=== PATIENT | male | born 1975 | race African-American/Black ===

== ENCOUNTER 2020-12-19 12:54 | Emergency (ER) | payer OTHER ==
[~2020-12-19] VITALS: Ht 175.3 cm; Wt 100.3 kg
--- NOTE | 2020-12-19 13:17 | PHYS DOC ---
Adult General Chief Complaint Chief Complaint: SHORTNESS OF BREATH [facility] HPI Patient is a 45-year-old male presents to the emergency department stating he woke up at approximately 830 this morning and noticed he had left-sided chest tightness with some sensation of pain when he took a deep breath or exhale deeply. Patient states he had a cold last week with nonproductive cough. Patient states that he has 1 roommate that he lives with that also had the same symptoms as a. Patient denies any radiation of this left-sided chest discomfort. Patient denies any nausea, vomiting, diarrhea, constipation. Patient denies any headaches, fever or chills, sore throat, fatigue, muscle or body aches, loss of taste or loss of smell. Patient denies any nasal congestion or runny nose. Patient does state he feels congested in his chest but cannot cough anything up. Patient states that he is unable to rate his pain as he does not describe it as a chest pain and more of a tightness when he takes deep breath. Patient reports being a pack-a-day cigarette smoker, drinks occa sionally socially, does not use any illicit drugs. Patient states he takes an allergy/sinus medication called Singulair daily. Patient denies any other physical complaints or physical symptoms. Review of Systems Review of Systems Constitutional: Denies fever or chills [] Eyes: Denies change in visual acuity, redness, or eye pain [] HENT: Denies nasal congestion or sore throat [] Respiratory: Denies cough or shortness of breath [] Cardiovascular: No additional information not addressed in HPI [] GI: Denies abdominal pain, nausea, vomiting, bloody stools or diarrhea [] : Denies dysuria or hematuria [] Musculoskeletal: Denies back pain or joint pain [] Integument: Denies rash or skin lesions [] Neurologic: Denies headache, focal weakness or sensory changes [] Endocrine: Denies polyuria or polydipsia [] All other systems were reviewed and found to be within normal limits, except as documented in this note. Family History Family History Patient reports his father is alive and has hypercholesterol problems, patient reports his mother from COPD and rheumatoid arthritis complications. Current Medications Current Medications Patient reports taking Singulair 10 mg p.o. daily for allergy and sinus problems. Allergies Allergies Allergies Coded Allergies Type Severity Reaction Last Updated Verified No Known Drug Allergies 12/19/20 No Physical Exam Physical Exam Constitutional: Well developed, well nourished, no acute distress, non-toxic appearance. 45-year-old male in no apparent distress. HENT: Normocephalic, atraumatic, bilateral external ears normal, oropharynx moist, no oral exudates, nose normal. Oropharynx within normal limits, bilateral TMs within normal limits, bilateral nasal turbinates within normal limits. Eyes: PERRLA, EOMI, conjunctiva normal, no discharge. Neck: Normal range of motion, no tenderness, supple, no stridor. No nuchal rigidity, no meningismus signs. Cardiovascular:Heart rate regular rhythm, no murmur, heart sounds S1-S2 to auscultation. Lungs & Thorax: Bilateral breath sounds clear to auscultation all lung bhakta. However when patient coughs, bronchial vesicular lung sounds appreciated per auscultation. Abdomen: Bowel sounds normal, soft, no tenderness, no masses, no pulsatile masses. Skin: Warm, dry, no erythema, no rash. Back: No tenderness, no CVA tenderness. Extremities: No tenderness, no cyanosis, no clubbing, ROM intact, no edema. Neurologic: Alert and oriented X 3, normal motor function, normal sensory function, no focal deficits noted. Psychologic: Affect normal, judgement normal, mood normal. Current Patient Data Lab Results Laboratory Tests Test 12/19/20 13:30 White Blood Count 9.4 x10^3/uL Red Blood Count 4.91 x10^6/uL Hemoglobin 16.1 g/dL Hematocrit 48.2 % Mean Corpuscular Volume 98 fL Mean Corpuscular Hemoglobin 33 pg Mean Corpuscular Hemoglobin Concent 33 g/dL Red Cell Distribution Width 12.7 % Platelet Count 285 x10^3/uL Neutrophils (%) (Auto) 65 % Lymphocytes (%) (Auto) 27 % Monocytes (%) (Auto) 6 % Eosinophils (%) (Auto) 2 % Basophils (%) (Auto) 1 % Neutrophils # (Auto) 6.1 x10^3uL Lymphocytes # (Auto) 2.5 x10^3/uL Monocytes # (Auto) 0.6 x10^3/uL Eosinophils # (Auto) 0.2 x10^3/uL Basophils # (Auto) 0.1 x10^3/uL D-Dimer (Ellie) < 0.19 mg/L Sodium Level 139 mmol/L Potassium Level 3.8 mmol/L Chloride Level 105 mmol/L Carbon Dioxide Level 25 mmol/L Anion Gap 9 Blood Urea Nitrogen 11 mg/dL Creatinine 1.1 mg/dL Estimated GFR (Cockcroft-Gault) 88.4 BUN/Creatinine Ratio 10 Glucose Level 104 mg/dL Calcium Level 9.3 mg/dL Magnesium Level 1.9 mg/dL Total Bilirubin 0.5 mg/dL Aspartate Amino Transf (AST/SGOT) 21 U/L Alanine Aminotransferase (ALT/SGPT) 37 U/L Alkaline Phosphatase 98 U/L Troponin I Quantitative < 0.017 ng/mL Total Protein 8.3 g/dL Albumin 4.0 g/dL Albumin/Globulin Ratio 0.9 Current Medications Medications (Trade) Dose Ordered Sig/Cale Route PRN Reason Start Time Stop Time Status Last Admin Dose Admin Ketorolac Tromethamine (Toradol 30mg Vial) 30 mg 1X ONCE IVP 12/19/20 13:30 12/19/20 13:31 DC 12/19/20 13:50 Acetaminophen (Tylenol) 650 mg 1X ONCE PO 12/19/20 13:30 12/19/20 13:31 DC 12/19/20 13:49 EKG EKG EKG performed at 1352 by house respiratory staff shows a normal sinus rhythm without ectopy with a heart rate of 69 bpm, [place] interval 0.138, QTc interval 0.406, no acute STEMI, no ACS, no acute ischemia appreciated, EKG interpreted by ED attending physician Dr. Hernandez. Radiology/Procedures Radiology/Procedures PATIENT: FRANK NJ ACCOUNT: [id number] : 1975 LOCATION: ER AGE: 45 SEX: M EXAM STATUS: REG ER ORD. PHYSICIAN: CARA BOYKIN APRN REASON: SHORT OF BREATH WITH LEFT SIDE CHEST PAIN PROCEDURE: CHEST PA & LATERAL EXAM: XR CHEST 2V INDICATION: Reason: SHORT OF BREATH WITH LEFT SIDE CHEST PAIN / Spl. Instructions: / History: . TECHNIQUE: PA and lateral views COMPARISON: None FINDINGS: The heart size is normal. The great vessels appear unremarkable. There is no hilar or mediastinal mass. Lungs are hyperlucent of the apices and show prominence of the interlobular septae right greater than left bilaterally. No focal infiltrates. There is no evidence of a pleural effusion or pneumothorax. There are no significant osseous abnormalities. IMPRESSION: Findings suggest underlying emphysema with no pneumothorax or other acute cardiopulmonary process. Consider chest CT (preferably) with IV contrast in further evaluation as clinically warranted. Electronically signed by: Lenka Cook MD (12/19/2020 1:27 PM) [id number] DICTATED AND SIGNED BY: LENKA COOK MD DATE: 12/19/20 [id number] CC: CARA BOYKIN APRN; BRADY ELENA MD ~MTH0 0 Heart Score HEART Score for Chest Pain: HEART Score for Chest Pain Response (Comments) Value History Slighlty/Non-Suspicious 0 ECG Normal 0 Age < 45 0 Risk Factors 1 or 2 Risk Factors 1 Troponin < Normal Limit 0 Total 1 Risk Factors: Risk Factors: DM, Current or recent (<one month) smoker, HTN, HLP, family history of CAD, obesity. Risk Scores: Risk Factors: DM, Current or recent (<one month) smoker, HTN, HLP, family history of CAD, obesity. Course & Med Decision Making Course & Med Decision Making Pertinent Labs and Imaging studies reviewed. (See chart for details) 45-year-old male, vital signs reviewed, presents emergency department complaint of chest tightness with deep inspiration/expiration that started today. Physical examination was consistent with musculoskeletal chest wall pain. However related to patient's history of smoking and family history, a cardiac work-up was initiated. We will treat patient's musculoskeletal chest wall pain symptoms with p.o. Tylenol and IV ketorolac. Any results of cardiorespiratory work-up at this time. Patient's labs equivocal, D-dimer was negative. Discussed chest x-ray findings with patient. Discussed smoking cessation with patient. Discussed follow-up care soon with primary care doctor related to chest x-ray findings. Patient gave verbal understanding of discharge home instructions, follow-up with primary care instructions, return to emergency department precautions or concerns, home medication use, the patient is a PUI and will be given a work excuse for 2 days pending test results and will extend for additional 10 days if results positive. Patient is PUI, I were N95 mask, goggles, face shield, PPE gown and gloves during contact with patient. The patient was not in a negative pressure room. Dragon Disclaimer Dragon Disclaimer This electronic medical record was generated, in whole or in part, using a voice recognition dictation system. Departure Departure: Impression: Primary Impression: Chest wall pain Additional Impressions: Person under investigation for COVID-19 Educated about COVID-19 virus infection Counseled about COVID-19 virus infection Encounter for smoking cessation counseling Disposition: 01 DC HOME SELF CARE/HOMELESS Condition: GOOD Referrals: PCP,NO (PCP) Patient Instructions: Chest Wall Pain, Smoking Cessation Additional Instructions: Please follow-up with your primary care doctor for further investigation of your shortness of breath, please see your doctor for help with smoking cessation, return to the emergency department for worsening symptoms or other concerns, please take medications as directed, I have given you information on the COVID- 19 virus attached to this document please review. You have been given a work excuse for the next 2 days pending COVID-19 results, if positive I will extend an additional 10 more days. EMERGENCY DEPARTMENT GENERAL DISCHARGE INSTRUCTIONS Thank you for coming to [facility] (ED) today and trusting us with you care. We trust that you had a positivie experience in our Emergency Department. If you wish to speak to the department management, you may call the director at [phone]. YOUR FOLLOW UP INSTRUCTIONS ARE FOLLOWS: 1. Do you have a private Doctor? If you do not have a private doctor, please ask for a resource list of physicians or clinics that may be able to assist you with follow up care. 2. The Emergency Physician has interpreted your x-rays. The X-Ray specialist will also review them. If there is a change in the findings, you will be notified in 48 hours when at all possible. 3. A lab test or culture has been done, your results will be reviewed and you will be notified if you need a change in treatment. ADDITIONAL INSTRUCTIONS AND INFORMATION: 1. Your care today has been supervised by a physician who is specially trained in emergency care. Many problems require more than one evaluation for a complete diagnosis and treatment. We recommend that you schedule your follow up appointment as recommended to ensure complete treatment of you illness or injury. If you are unable to obtain follow up care and continue to have a problem, or if your condition worsens, we recommend that you return to the ED. 2. We are not able to safely determine your condition over the phone nor are we able to give sound medical advice over the phone. For these safety reasons, if you call for medical advice we will ask you to come to the ED for further evaluation. 3. If you have any questions regarding these discharge instructions please call the ED at [phone]. SAFETY INFORMATION: In the interest of safety, wellness, and injury prevention; we encourage you to wear your sealbelt, if you smoke; quite smoking, and we encourage family to use a protective helmet for bicycling and other sporting events that present an increased risk for head injury. IF YOUR SYMPTOMS WORSEN OR NEW SYMPTOMS DEVELOP, OR YOU HAVE CONCERNS ABOUT YOUR CONDITION; OR IF YOUR CONDITION WORSENS WHILE YOU ARE WAITING FOR YOUR FOLLOW UP APPOIN TMENT; EITHER CONTACT YOUR PRIMARY CARE DOCTOR, THE PHYSICIAN WHOSE NAME AND NUMBER YOU WERE GIVEN, OR RETURN TO THE ED IMMEDIATELY. You have been tested for or diagnosed with COVID-19. It is an infection caused by a new type of coronavirus. COVID-19 will cause cold-like or mild flu symptoms in most. It can cause more severe symptoms like problems breathing in some. There is no treatment for COVID-19. The body will clear the infection over time. Self-care will help to ease discomfort. Steps to Take: Self-Care Rest as needed. Healthy habits may help you feel better. Steps include: Choose healthy foods including fruits and vegetables. Drink water throughout the day. Get plenty of sleep each night. If you smoke, try to quit. It may ease breathing. Avoid alcohol. Keep Others Healthy The virus can spread to others. Droplets are released every time you sneeze or cough. The droplets can get into the mouth, nose, or eyes of people near you and lead to infection. To lower the chances of spreading COVID-19 to others: Stay at home until your doctor has said it is safe to leave. If you tested positive this will mean staying isolated until both of the following are true: At least 7 days have passed since the start of illness. You are free of fever for at least 72 hours without the use of medicine. During this time: - Avoid public areas, events, or transportation. Do not return to work or school until your doctor has said it is safe to do so. - Call ahead if you need to go to a medical center. Let them know you may have COVID-19. It will help them guide you where to go. They may also ask you to wear a facemask when you come to the office. - If you call for emergency medical services, let them know you may have COVID- 19. While at home: - Try to avoid close contact with others. Stay about 6 feet away. - If possible, spend most of your time in a separate room from others. - Use a face mask if you will be in close contact with others such as sharing a room or vehicle. - Have someone wipe down common surfaces in the home. Use household biodiesel division manager every day on areas like doorknobs, counters, or sinks. - Cough or sneeze into a tissue. Throw the tissue away right after use. If a tissue is not available, cough or sneeze into your elbow. - Wash your hands often. Wash them after sneezing or coughing. Use soap and water and wash for at least 20 seconds. Alcohol based hand boiler cleaner can be used if soap and water is not available. - Do not prepare food for others. Avoid sharing personal items like forks, spoons, or toothbrushes. - Avoid close contact with pets while you are sick. There is no evidence of the virus passing to pets. This is a safety step until more is known about this virus. Isolation can be frustrating. Social interaction can help. Keep in touch with friends and family through phone and tech options. You can still interact with others in your home, just keep a safe distance of about 6 feet. Follow-up: Your doctors office will check in with you to see if there are any changes in your health. You may be asked to keep track of symptoms to share with them. They will also let you know when you are clear to be in public again. Problems to Look Out For: Contact your doctor if your recovery is not going as you expect. Get emergency care if you have problems such as: - Trouble breathing - Nonstop chest pain or pressure - Changes in awareness, confusion, or problems waking - Lips or face have bluish color - Worsening of symptoms If you think you have an emergency, call for emergency medical services right away. As taken from [facility] Scripts Ibuprofen (IBUPROFEN) 600 Mg Tablet 600 MG PO TID PRN PRN for PAIN, #20 TAB 0 Refills Prov: CARA BOYKIN APRN 12/19/20 Benzonatate (TESSALON PERLE) 100 Mg Capsule 1 CAP PO TID for cough, #10 CAP 0 Refills Prov: CARA BOYKIN APRN 12/19/20 Problem Qualifiers CARA BOYKIN APRN Dec 19, 2020 13:17
[2020-12-19] MEDS ORDERED: KETOROLAC 30 MG/ML VIAL. IVP ONE (13:30)
[2020-12-19] MEDS ORDERED: ACETAMINOPHEN 325 MG TABLET PO ONE (13:30)
--- NOTE | 2020-12-19 13:30 | RAD ---
EXAM: XR CHEST 2V INDICATION: Reason: SHORT OF BREATH WITH LEFT SIDE CHEST PAIN / Spl. Instructions: / History: . TECHNIQUE: PA and lateral views COMPARISON: None FINDINGS: The heart size is normal. The great vessels appear unremarkable. There is no hilar or mediastinal mass. Lungs are hyperlucent of the apices and show prominence of the interlobular septae right greater than left bilaterally. No focal infiltrates. There is no evidence of a pleural effusion or pneumothorax. There are no significant osseous abnormalities. IMPRESSION: Findings suggest underlying emphysema with no pneumothorax or other acute cardiopulmonary process. Co nsider chest CT (preferably) with IV contrast in further evaluation as clinically warranted. Electronically signed by: Danette Cook MD (12/19/2020 1:27 PM) [id number]
[2020-12-19 13:57] LABS: BASO # 0.1 x10^3/uL (0.0-0.2); BASO % 1 % (0-3); EOS # 0.2 x10^3/uL (0.0-0.7); EOS % 2 % (0-3); HEMATOCRIT 48.2 % (39.0-53.0); HEMOGLOBIN 16.1 g/dL (13.0-17.5); LYMPH # 2.5 x10^3/uL (1.0-4.8); LYMPH % 27 % (24-48); MEAN CORPUSCULAR HEMOGLOBIN 33 pg (25-35); MEAN CORPUSCULAR HGB CONC 33 g/dL (31-37); MEAN CORPUSCULAR VOLUME 98 fL (79-100); MONO # 0.6 x10^3/uL (0.0-1.1); MONO % 6 % (0-9); NEUT # 6.1 x10^3uL (1.8-7.7); NEUT % 65 % (31-73); PLATELET COUNT 285 x10^3/uL (140-400); RED BLOOD COUNT 4.91 x10^6/uL (4.30-5.70); RED CELL DISTRIBUTION WIDTH 12.7 % (11.5-14.5); WHITE BLOOD COUNT 9.4 x10^3/uL (4.0-11.0)
[2020-12-19 14:09] LABS: CALCIUM 9.3 mg/dL (8.5-10.1); CREATININE 1.1 mg/dL (0.7-1.3); GFR 88.4; POTASSIUM 3.8 mmol/L (3.5-5.1)
[2020-12-19 14:14] LABS: ALBUMIN/GLOBULIN RATIO 0.9 (1.0-1.7); MAGNESIUM 1.9 mg/dL (1.8-2.4); TOTAL BILIRUBIN 0.5 mg/dL (0.2-1.0); TOTAL PROTEIN 8.3 g/dL (6.4-8.2)
[2020-12-19] MEDS ORDERED: BENZ100C PO (14:59)
[2020-12-19] MEDS ORDERED: IBUP600T16 PO (14:59)
[2020-12-19 15:10] VITALS: BP 156/83
--- NOTE | 2020-12-19 18:40 | EKG ---
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
== END 2020-12-19 15:13 | disposition home or self-care (01) ==
LOC: ER 12:54
DX: R07.89 Other chest pain (principal); R09.81 Nasal congestion; R05 Cough; F17.200 Nicotine dependence, unspecified, uncomplicated; Z20.822 Contact with and (suspected) exposure to COVID-19
CPT/HCPCS: 36415; 71046; 80053; 83735; 84484; 85025; 85379; 93005; 96374; 99283; C9803; J1885; U0003

== ENCOUNTER → 2020-12-23 | Outpatient (CLI) | payer OTHER ==
[2020-12-19 15:10] VITALS: BP 156/83
[~2020-12-23] MED LIST: BENZ100C PO; IBUP600T16 PO; IOHEXOL 300 MG/ML 75 ML VIAL. IV ONE
--- NOTE | 2020-12-25 09:57 | RAD ---
Exam Date: 12/23/2020 7:[address] THORAX W Indication: Reason: EMPHYSEMA / Spl. Instructions: 75MLS OMNI 300 / History: TECHNIQUE: CT scan of the chest was performed without intravenous contrast. One or more of the [facility] dose reduction techniques were utilized: *Automated exposure control (AEC) *Adjustment of mA and/or kV according to patient size *Use of iterative reconstruction technique *CT scan done according to ALARA, or ALARA/IMAGE GENTLY COMPARISON: Radiographs from December 19, 2020 FINDINGS: Biapical emphysematous changes are noted with large apical blebs, left more prominent than right. The central airways are patent. There is no focal consolidation, pleural effusion or pneumothorax. The visualized thyroid gland is within normal limits. No lymphadenopathy is seen. The heart is normal in size without pericardial effusion. Aorta is normal in caliber with no significant atherosclerotic calcifications. Images of the upper abdomen demonstrate no focal abnormality. Degenerative changes are seen in the s pine. IMPRESSION: Prominent biapical emphysematous changes with large bulla, left more prominent than right. Electronically signed by: Rubens Christianson MD (12/23/2020 8:38 AM) [place] [id number]
== END ==
LOC: CT 07:35
PROVIDERS: ATTEND Family Medicine
DX: J43.9 Emphysema, unspecified (principal)
CPT/HCPCS: 71260; Q9967

== ENCOUNTER 2021-01-24 17:59 | Emergency (ER) | payer OTHER ==
[~2021-01-24] VITALS: Ht 175.3 cm; Wt 100.3 kg
[~2021-01-24 17:59] MED LIST changes: -IOHEXOL 300 MG/ML 75 ML VIAL. IV ONE
--- NOTE | 2021-01-24 18:26 | EKG ---
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
[2021-01-24] MEDS ORDERED: DEXAMETHASONE 4 MG TABLET PO ONE (18:45)
[2021-01-24] MEDS ORDERED: IPRATRPIUM/ALBUTEROL 0.5/2.5MG 3 ML NEBU. NEB ONE (18:45)
--- NOTE | 2021-01-24 18:58 | PHYS DOC ---
Past History Past Medical History: Other Additional Past Medical Histor: emphysema Past Surgical History: No Surgical History Alcohol Use: Occasionally Adult General Chief Complaint Chief Complaint: SHORTNESS OF BREATH HPI HPI Patient is a 45-year-old male with a past medical history significant for COPD who presents with a day of increased cough, sputum production and mild dyspnea on exertion. States that he was doing relatively well yesterday, has had no known ill contacts in the last week, and denies any fevers, sore throat, chest pain, abdominal pain, nausea, vomiting, diarrhea. Does endorse some generalized chest tightness over the last day. States he does have albuterol at home which seems to help a little. Review of Systems Review of Systems Review of systems otherwise unremarkable except noted in HPI Current Medications Current Medications Current Medications Medications (Trade) Dose Ordered Sig/Cale Start Time Stop Time Status Last Admin Dose Admin Albuterol/ Ipratropium (Duoneb) 3 ml 1X ONCE 01/24/21 18:45 01/24/21 18:46 UNV Dexamethasone (Decadron) 10 mg 1X ONCE 01/24/21 18:45 01/24/21 18:46 UNV Allergies Allergies Allergies Coded Allergies Type Severity Reaction Last Updated Verified No Known Drug Allergies 01/24/21 No Physical Exam Physical Exam Constitutional: Well developed, well nourished, no acute distress, non-toxic appearance. [] HENT: Normocephalic, atraumatic, bilateral external ears normal, oropharynx moist, no oral exudates/erythema, nose normal. [] Eyes: conjunctiva normal, no discharge. [] Neck: Normal range of motion, no tenderness, supple, no stridor. [] Cardiovascular:Heart rate regular rhythm, no murmur [] Lungs & Thorax: Bilateral breath sounds equal and clear except for a scant upper left lobe and expiratory wheeze Abdomen: soft, no tenderness, no masses, no pulsatile masses. [] Skin: Warm, dry, no erythema, no rash. [] Extremities: No tenderness, no cyanosis, no clubbing, ROM intact, no edema. [] Neurologic: Alert and oriented X 3, normal motor function, normal sensory function, no focal deficits noted. [] Psychologic: Affect normal, judgement normal, mood normal. [] Current Patient Data Vital Signs Vital Signs Date Time Temp Pulse Resp B/P (MAP) Pulse Ox O2 Delivery O2 Flow Rate FiO2 01/24/21 18:06 98.5 72 15 148/89 (108) 100 Room Air EKG EKG Rate of 74, QRS of 80, QTc of 404, no STEMI [] Radiology/Procedures Radiology/Procedures [] Heart Score C/O Chest Pain: No HEART Score for Chest Pain: HEART Score for Chest Pain Response (Comments) Value History Slighlty/Non-Suspicious 0 ECG Normal 0 Age < 45 0 Risk Factors 1 or 2 Risk Factors 1 Troponin < Normal Limit 0 Total 1 Risk Factors: Risk Factors: DM, Current or recent (<one month) smoker, HTN, HLP, family history of CAD, obesity. Risk Scores: Risk Factors: DM, Current or recent (<one month) smoker, HTN, HLP, family history of CAD, obesity. Course & Med Decision Making Course & Med Decision Making Patient is a 45-year-old male who presents with increased cough, sputum production and some shortness of breath over the last day Vital signs notable for hypertension. Physical exam noted above. Patient given breathing treatment, and steroids. EKG noted above and normal. Troponin normal. Heart score of 1. D-dimer normal. Laboratory analysis normal. Chest x-ray not concerning. Discussed all findings with patient and advised a course of doxycycline over the next week. Advised to call primary care physician first thing in the morning to discuss visit. Gave strict return precautions to the ED. Patient grateful, verbalized understanding and agreed with plan of discharge [] Dragon Disclaimer Dragon Disclaimer This electronic medical record was generated, in whole or in part, using a voice recognition dictation system. Departure Departure: Impression: Primary Impression: Cough Additional Impressions: Increased sputum production Shortness of breath COPD exacerbation Disposition: 01 DC HOME SELF CARE/HOMELESS Condition: IMPROVED Referrals: BRADY ELENA MD (PCP) Patient Instructions: Chronic Obstructive Pulmonary Disease Exacerbation Additional Instructions: Please read all the attached information. Please take your antibiotics as prescribed. Please continue to use your home medications as prescribed. Please call your primary care physician first thing in the morning to update on your ED visit and set up a follow-up as soon as you can. Please come back to the ED with new or concerning symptoms as discussed. Scripts Doxycycline Hyclate (DOXYCYCLINE HYCLATE) 100 Mg Capsule 1 CAP PO BID for COPD for 7 Days, #13 CAP Prov: SEAN BARBOSA MD 01/24/21 Problem Qualifiers SEAN BARBOSA MD Jan 24, 2021 18:58
[2021-01-24 19:08] LABS: BASO # 0.1 x10^3/uL (0.0-0.2); BASO % 1 % (0-3); EOS # 0.2 x10^3/uL (0.0-0.7); EOS % 2 % (0-3); HEMATOCRIT 41.4 % (39.0-53.0); LYMPH # 4.5 x10^3/uL (1.0-4.8); LYMPH % 36 % (24-48); MEAN CORPUSCULAR HEMOGLOBIN 33 pg (25-35); MEAN CORPUSCULAR HGB CONC 34 g/dL (31-37); MEAN CORPUSCULAR VOLUME 97 fL (79-100); MONO # 0.8 x10^3/uL (0.0-1.1); MONO % 7 % (0-9); NEUT # 6.7 x10^3uL (1.8-7.7); NEUT % 54 % (31-73); PLATELET COUNT 260 x10^3/uL (140-400); RED BLOOD COUNT 4.27 x10^6/uL (4.30-5.70); RED CELL DISTRIBUTION WIDTH 12.4 % (11.5-14.5); WHITE BLOOD COUNT 12.3 x10^3/uL (4.0-11.0)
[2021-01-24 19:11] LABS: CALCIUM 9.1 mg/dL (8.5-10.1); CREATININE 1.2 mg/dL (0.7-1.3); POTASSIUM 3.6 mmol/L (3.5-5.1)
--- NOTE | 2021-01-24 19:24 | RAD ---
EXAM: AP View of the chest DATE: 01/24/2021 6:27 PM INDICATION: Reason: chest pain / Spl. Instructions: / History: COMPARISON: 12/19/2020 12/23/2020 FINDINGS: The heart is not enlarged. Mediastinal and hilar contours are normal. No focal parenchymal airspace opacity. Emphysematous changes are seen. No pleural effusion or pneumothorax. IMPRESSION: 1. No radiographic evidence for acute cardiopulmonary process. Electronically signed by: Ziggy Hankins MD (01/24/2021 7:21 PM) SHANA
[2021-01-24] MEDS ORDERED: DOXY100C2 PO (19:34)
[2021-01-24 19:45] VITALS: BP 145/78
[2021-01-24] MEDS ORDERED: PROMETH/CODEINE 6.25/10MG 5 ML SYRUP. PO PRN (19:45)
[2021-01-24] MEDS ORDERED: DOXYCYCLINE HYCLATE 100 MG TABLET PO ONE (19:45)
== END 2021-01-24 20:05 | disposition home or self-care (01) ==
LOC: ER 17:59
DX: J44.1 Chronic obstructive pulmonary disease with (acute) exacerbation (principal)
CPT/HCPCS: 36415; 71045; 80048; 84484; 85025; 85379; 93005; 94640; 99283; J8540

== ENCOUNTER → 2021-01-25 | Outpatient (CLI) | payer OTHER ==
[2021-01-24 19:45] VITALS: BP 145/78
[~2021-01-25] MED LIST changes: +DOXY100C2 PO
== END ==
LOC: LAB 09:33
PROVIDERS: ATTEND Internal Medicine Pulmonary Disease
DX: J43.9 Emphysema, unspecified (principal)
CPT/HCPCS: 36415; 82103

== ENCOUNTER 2021-12-14 08:18 | Emergency (ER) | payer SELFPAY ==
[~2021-12-14] VITALS: Ht 175.3 cm; Wt 96.0 kg
[~2021-12-14 08:18] MED LIST changes: -DOXY100C2 PO; +DOXY100C3 PO
[2021-12-14 08:50] LABS: BASO % 1 % (0-3); EOS # 0.1 x10^3/uL (0.0-0.7); EOS % 1 % (0-3); HEMATOCRIT 44.8 % (39.0-53.0); HEMOGLOBIN 15.2 g/dL (13.0-17.5); LYMPH # 1.5 x10^3/uL (1.0-4.8); LYMPH % 25 % (24-48); MEAN CORPUSCULAR HEMOGLOBIN 33 pg (25-35); MEAN CORPUSCULAR HGB CONC 34 g/dL (31-37); MEAN CORPUSCULAR VOLUME 98 fL (79-100); MONO # 0.8 x10^3/uL (0.0-1.1); MONO % 15 % (0-9); NEUT # 3.4 x10^3uL (1.8-7.7); NEUT % 59 % (31-73); PLATELET COUNT 210 x10^3/uL (140-400); RED BLOOD COUNT 4.57 x10^6/uL (4.30-5.70); WHITE BLOOD COUNT 5.8 x10^3/uL (4.0-11.0)
--- NOTE | 2021-12-14 08:51 | RAD ---
Study: XR CHEST 1V Indication: Chest pain. Comparison: 01/24/2021 Findings: The cardiomediastinal silhouette is within the broad range of normal for size considering AP techniqu e. Unchanged hilar configuration. Streaky densities at the lung bases favored pleuroparenchymal scarring potentially with a component o f atelectasis. No lobar consolidation or pleural effusion. Hyperlucency at the lung apices most typic al of bullae formation in the setting of emphysema. Impression: 1. No acute radiographic abnormality of the chest. 2. Emphysema with bullae formation at the left more so than right lung apices. No evidence for a sup erimposed pneumothorax. Electronically signed by: LORENZO MILLER MD (12/14/2021 8:48 AM) [facility]
--- NOTE | 2021-12-14 08:56 | PHYS DOC ---
Past History Past Medical History: Other Additional Past Medical Histor: emphysema, bleb Past Surgical History: No Surgical History Alcohol Use: Occasionally General Adult EDM: Chief Complaint: CHEST PAIN HPI: HPI: 46-year-old male presents with chest pain/upper epigastric discomfort. The patient has been feeling a little more short of breath the last couple of days. He has emphysema at baseline. He has been using his albuterol more the last 2 days. Today he had no appetite and central chest discomfort so he decided come in for evaluation. Patient has no history of cardiac issues. He has never had surgery in his abdomen. He does drink alcohol daily but has no history of pancreatitis. He is fully vaccinated against COVID-19 but also got COVID-19 after his vaccination. Denies fever or chills. Review of Systems: Review of Systems: Constitutional: Denies fever or chills Eyes: Denies change in visual acuity HENT: Denies nasal congestion or sore throat Respiratory: Denies cough or shortness of breath Cardiovascular: Chest pain GI: Epigastric abdominal pain. Denies nausea, vomiting, bloody stools or diarrhea : Denies dysuria Musculoskeletal: Denies back pain or joint pain Integument: Denies rash Neurologic: Denies headache, focal weakness or sensory changes Endocrine: Denies polyuria or polydipsia Lymphatic: Denies swollen glands Psychiatric: Denies depression or anxiety Allergies: Allergies: Allergies Coded Allergies Type Severity Reaction Last Updated Verified No Known Drug Allergies 01/24/21 No Physical Exam: PE: Constitutional: Well developed, well nourished, no acute distress, non-toxic appearance. [] HENT: Normocephalic, atraumatic, bilateral external ears normal, oropharynx moist, no oral exudates, nose normal. [] Eyes: PERRLA, EOMI, conjunctiva normal, no discharge. [] Neck: Normal range of motion, no tenderness, supple, no stridor. [] Cardiovascular: Heart rate 87, regular rhythm, no murmur [] Lungs & Thorax: Bilateral breath sounds diminished but clear. [] Abdomen: Bowel sounds normal, soft, mild epigastric tenderness, no masses, no pulsatile masses. [] Skin: Warm, dry, no erythema, no rash. [] Back: No tenderness, no CVA tenderness. [] Extremities: No tenderness, no cyanosis, no clubbing, ROM intact, no edema. [] Neurologic: Alert and oriented X 3, normal motor function, normal sensory function, no focal deficits noted. [] Psychologic: Affect normal, judgement normal, mood normal. [] Current Patient Data: Vital Signs: Vital Signs Date Time Temp Pulse Resp B/P (MAP) Pulse Ox O2 Delivery O2 Flow Rate FiO2 12/14/21 08:18 88 132/86 (101) 97 Room Air 12/14/21 08:18 20 EKG: EKG: Sinus rhythm, rate 87, normal axis, no ST elevation or depression. [] Radiology/Procedures: Radiology/Procedures: [] Impressions: Study: XR CHEST 1V Indication: Chest pain. Comparison: 01/24/2021 Findings: The cardiomediastinal silhouette is within the broad range of normal for size considering AP technique. Unchanged hilar configuration. Streaky densities at the lung bases favored pleuroparenchymal scarring potentially with a component of atelectasis. No lobar consolidation or pleural effusion. Hyperlucency at the lung apices most typical of bullae formation in the setting of emphysema. Impression: 1. No acute radiographic abnormality of the chest. 2. Emphysema with bullae formation at the left more so than right lung apices. No evidence for a superimposed pneumothorax. Electronically signed by: LORENZO MILLER MD (12/14/2021 8:48 AM) [facility] DICTATED AND SIGNED BY: LORENZO MILLER MD DATE: 12/14/21 0842 CC: BRADY ELENA MD; LEONIDAS FERRO DO ~MTH0 0 Heart Score: C/O Chest Pain: Yes HEART Score for Chest Pain: HEART Score for Chest Pain Response (Comments) Value History Slighlty/Non-Suspicious 0 ECG Normal 0 Age >45 - < 65 1 Risk Factors 1 or 2 Risk Factors 1 Total 2 Risk Factors: Risk Factors: DM, Current or recent (<one month) smoker, HTN, HLP, family history of CAD, obesity. Risk Scores: Score 0 - 3: 2.5% MACE over next 6 weeks - Discharge Home Score 4 - 6: 20.3% MACE over next 6 weeks - Admit for Clinical Observation Score 7 - 10: 72.7% MACE over next 6 weeks - Early Invasive Strategies Course & Med Decision Making: Course & Med Decision Making Pertinent Labs and Imaging studies reviewed. (See chart for details) The patient's EKG is unremarkable. There is labs are unremarkable. His troponin is normal. Chest x-ray is negative for acute findings. There are chronic findings. See report for more details. The patient is positive for COVID-19. I have advised supportive care and isolation at home. He is stable for discharge at this time. [] Dragon Disclaimer: Dragon Disclaimer: This electronic medical record was generated, in whole or in part, using a voice recognition dictation system. Departure Departure: Impression: Primary Impression: COVID-19 Disposition: HOME / SELF CARE / HOMELESS Condition: STABLE Referrals: BRADY ELENA MD (PCP) Patient Instructions: Viral Syndrome Additional Instructions: You have been tested for or diagnosed with COVID-19. It is an infection caused by a new type of coronavirus. COVID-19 will cause cold-like or mild flu symptoms in most. It can cause more severe symptoms like problems breathing in some. There is no treatment for COVID-19. The body will clear the infection over time. Self-care will help to ease discomfort. Steps to Take: Self-Care Rest as needed. Healthy habits may help you feel better. Steps include: Choose healthy foods including fruits and vegetables. Drink water throughout the day. Get plenty of sleep each night. If you smoke, try to quit. It may ease breathing. Avoid alcohol. Keep Others Healthy The virus can spread to others. Droplets are released every time you sneeze or cough. The droplets can get into the mouth, nose, or eyes of people near you and lead to infection. To lower the chances of spreading COVID-19 to others: Stay at home until your doctor has said it is safe to leave. If you tested posi tive this will mean staying isolated until both of the following are true: At least 7 days have passed since the start of illness. You are free of fever for at least 72 hours without the use of medicine. During this time: - Avoid public areas, events, or transportation. Do not return to work or school until your doctor has said it is safe to do so. - Call ahead if you need to go to a medical center. Let them know you may have COVID-19. It will help them guide you where to go. They may also ask you to wear a facemask when you come to the office. - If you call for emergency medical services, let them know you may have COVID- 19. While at home: - Try to avoid close contact with others. Stay about 6 feet away. - If possible, spend most of your time in a separate room from others. - Use a face mask if you will be in close contact with others such as sharing a room or vehicle. - Have someone wipe down common surfaces in the home. Use household group home supervisor every day on areas like doorknobs, counters, or sinks. - Cough or sneeze into a tissue. Throw the tissue away right after use. If a tissue is not available, cough or sneeze into your elbow. - Wash your hands often. Wash them after sneezing or coughing. Use soap and water and wash for at least 20 seconds. Alcohol based hand lining cleaner can be used if soap and water is not available. - Do not prepare food for others. Avoid sharing personal items like forks, spoons, or toothbrushes. - Avoid close contact with pets while you are sick. There is no evidence of the virus passing to pets. This is a safety step until more is known about this virus. Isolation can be frustrating. Social interaction can help. Keep in touch with friends and family through phone and tech options. You can still interact with others in your home, just keep a safe distance of about 6 feet. Follow-up: Your doctors office will check in with you to see if there are any changes in your health. You may be asked to keep track of symptoms to share with them. They will also let you know when you are clear to be in public again. Problems to Look Out For: Contact your doctor if your recovery is not going as you expect. Get emergency care if you have problems such as: - Trouble breathing - Nonstop chest pain or pressure - Changes in awareness, confusion, or problems waking - Lips or face have bluish color - Worsening of symptoms If you think you have an emergency, call for emergency medical services right away. As taken from [facility] LEONIDAS FERRO DO Dec 14, 2021 08:56
[2021-12-14 08:59] LABS: CALCIUM 8.9 mg/dL (8.5-10.1); CREATININE 1.1 mg/dL (0.7-1.3); POTASSIUM 3.7 mmol/L (3.5-5.1)
[2021-12-14 09:05] LABS: ALBUMIN 3.9 g/dL (3.4-5.0); ALBUMIN/GLOBULIN RATIO 1.1 (1.0-1.7); TOTAL BILIRUBIN 0.4 mg/dL (0.2-1.0); TOTAL PROTEIN 7.3 g/dL (6.4-8.2)
[2021-12-14 09:13] LABS: INFLUENZA A PATIENT NEGATIVE (NEGATIVE); INFLUENZA B PATIENT NEGATIVE (NEGATIVE)
[2021-12-14 09:23] VITALS: BP 142/83
[2021-12-14] MEDS ORDERED: PRED20TA PO (09:43)
[2021-12-14] MEDS ORDERED: predniSONE 20 MG TABLET PO ONE (09:45)
--- NOTE | 2021-12-14 11:16 | EKG ---
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
== END 2021-12-14 09:50 | disposition home or self-care (01) ==
LOC: ER 08:18
DX: U07.1 COVID-19 (principal)
CPT/HCPCS: 36415; 71045; 80053; 83690; 84484; 85025; 87428; 93005; 99285; J7512